=== PATIENT | male | born 1970 | race Caucasian/White ===

== ENCOUNTER → 2018-06-05 | Outpatient (CLI) | payer BC ==
--- NOTE | 2018-06-05 15:18 | REP ---
LEFT HIP, TWO VIEWS: HISTORY: Pain. There is no acute fracture or dislocation. The joint space is normal in appearance. Calcifications are present lateral to the joint space. This represents ligamentous or tendon calcification. A bone island is present in the proximal femur. IMPRESSION:There is no acute fracture or dislocation. Electronically Signed by Kishore Avila MD 06/05/2018 03:25 P
== END ==
LOC: M LRY 11:45
PROVIDERS: ATTEND Physician Assistant
DX: M25.552 Pain in left hip (principal); S79.912A Unspecified injury of left hip, initial encounter; M89.8X8 Other specified disorders of bone, other site; M61.48 Other calcification of muscle, other site; Y92.9 Unspecified place or not applicable; Y93.9 Activity, unspecified; X58.XXXA Exposure to other specified factors, initial encounter

== ENCOUNTER → 2018-09-06 | Outpatient (REF) | payer BC | LOC: M SFHCLUC 19:05 | PROVIDERS: ATTEND Physician Assistant Medical | DX: J03.90 Acute tonsillitis, unspecified (principal) ==

== ENCOUNTER → 2019-08-14 | Outpatient (CLI) | payer BC ==
--- NOTE | 2019-08-14 16:42 | REP ---
TWO-VIEW CHEST: REASON FOR EXAM: Chest pain. COMPARISON: No priors. FINDINGS: The superior mediastinal structures are midline. The cardiac silhouette is unremarkable in size, shape, and position. The diaphragmatic surfaces of the lungs are regular, and the costophrenic angles are clear. The pulmonary campos are clear. The imaged osseous structures are intact. IMPRESSION: There is no acute cardiopulmonary disease. Electronically Signed by Weston Viveros DO 08/14/2019 04:55 P
--- NOTE | 2019-08-14 18:08 | REP ---
Clinical: Chest and back pain. Technique: AP, lateral, swimmers views of the thoracic spine. Findings: Alignment and kyphosis is maintained. Vertebral bodies are intact. No acute fracture / compression injury or subluxation of the thoracic spine. No significant arthritic/degenerative changes. Paravertebral soft tissues are normal. Swimmers view demonstrates a subtle cortical irregularity along the anterior lower portion of the manubrium. While this may represent an incidental finding, correlation with trauma may be warranted. Impression: Age-appropriate thoracic spine series. Questionable cortical defect of the manubrium. Clinical and physical correlation may be warranted. Electronically Signed by Suleiman Davis MD 08/14/2019 06:00 P
== END ==
LOC: M LRY 09:30
PROVIDERS: ATTEND Nurse Practitioner Adult Health
DX: R07.89 Other chest pain (principal)

== ENCOUNTER → 2021-04-09 | Outpatient (REF) | payer BC | LOC: M WUC 17:22 | PROVIDERS: ATTEND Physician Assistant | DX: R30.0 Dysuria (principal) ==

== ENCOUNTER → 2021-10-17 | Outpatient (CLI) | payer BC ==
[~2021-10-17] MED LIST: BISO1TAB18 PO; EZET10TA21 PO; FLAX10002 PO; ICOS1CAP PO; LEVO50TA5 PO; LOPI600T PO; LOSA25TA13 PO; RA M500C PO; TAMS1CAP17 PO
== END ==
LOC: M LABSMTC 10:12
PROVIDERS: ATTEND Anesthesiology
DX: Z01.818 Encounter for other preprocedural examination (principal); Z11.52 Encounter for screening for COVID-19

== ENCOUNTER 2021-10-21 05:59 | Day surgery (SDC) | payer BC ==
[~2021-10-21] VITALS: Ht 167.6 cm; Wt 103.9 kg
[2021-10-21] MEDS ORDERED: SODIUM BICARBONATE 8.4% INJ 50MEQ 50 ML VIAL XX ONE (06:40)
[2021-10-21] MEDS ORDERED: LIDOCAINE W/EPINEPHRINE 1% 20ML VIAL XX ONE (06:40)
[2021-10-21] MEDS ORDERED: BACITRACIN OINTMENT 30GM TUBE As Ordered ONE (07:15)
[2021-10-21 08:30] VITALS: BP 123/57
[2021-10-21] MEDS ORDERED: TRAM50TA2 PO (08:34)
== END 2021-10-21 08:55 | disposition home or self-care (01) ==
LOC: M SDC 05:59
PROVIDERS: ATTEND Orthopaedic Surgery Hand Surgery
DX: M67.442 Ganglion, left hand (principal); I10 Essential (primary) hypertension; E78.00 Pure hypercholesterolemia, unspecified; E03.9 Hypothyroidism, unspecified; J34.89 Other specified disorders of nose and nasal sinuses; Z79.899 Other long term (current) drug therapy; Z79.890 Hormone replacement therapy

== ENCOUNTER → 2022-05-14 | Outpatient (CLI) | payer BC ==
[~2022-05-14] MED LIST changes: +TRAM50TA2 PO
== END ==
LOC: M LABSMTC 10:27
PROVIDERS: ATTEND Internal Medicine Cardiovascular Disease
DX: Z11.52 Encounter for screening for COVID-19 (principal)

== ENCOUNTER → 2025-03-12 | Outpatient (CLI) | payer BC ==
[~2025-03-12] MED LIST changes: -EZET10TA21 PO; +EZET10TA57 PO; +ISOVUE-370 76% 100 ML VIAL As Ordered ONE
== END ==
LOC: M RAD 16:06
PROVIDERS: ATTEND Student in an Organized Health Care Education/Training Program
DX: K76.0 Fatty (change of) liver, not elsewhere classified (principal); K44.9 Diaphragmatic hernia without obstruction or gangrene; K40.90 Unilateral inguinal hernia, without obstruction or gangrene, not specified as recurrent; Z98.0 Intestinal bypass and anastomosis status; Z90.49 Acquired absence of other specified parts of digestive tract
CPT/HCPCS: 74177; Q9967